=== PATIENT | female | born 1970 | race Two or more races ===

== ENCOUNTER 2019-01-04 09:08 | Emergency (ER) | payer BC, MEDICAID ==
--- NOTE | 2019-01-04 09:24 | ED Physician Documentation ---
PD HPI HEENT - Stated complaint Stated Complaint: SORE THROAT - Chief complaint Chief Complaint: Heent - History obtained from History obtained from: Patient - History of Present Illness Timing - onset: How many days ago (7) Timing - duration: Days (7) Timing - details: Gradual onset, Still present Pain level now: 9 Location: Left ear, Throat Improves: Nothing Worsens: Swalllowing Associated symptoms: No: Fever, Congestion, Rhinorrhea, Cough Recently seen: Not recently seen - Additional information Additional information: Is a 48-year-old woman who presents with complaints that her left tonsil started hurting about a week ago and she has a history of stones so she did not really think that much of it. Now the pain is progressed up into her left ear is an 8- 9 out of 10 and she was taking ibuprofen and Tylenol which were helping up until last night. She has not had a fever. No stuffy nose or cough. She has had no known strep exposure but her boss had a sore throat at work last week and she works at the [employer]. Review of Systems Constitutional: denies: Fever Ears: reports: Ear pain Nose: denies: Congestion Throat: reports: Sore throat Respiratory: denies: Cough PD PAST MEDICAL HISTORY - Present Medications Home Medications: Ambulatory Orders Medication Instructions Recorded Confirmed Azithromycin [Zithromax] 250 mg PO DAILY #6 tablet 01/04/19 Esomeprazole Magnesium [Nexium] 01/04/19 - Allergies Allergies/Adverse Reactions: Allergies Allergy/AdvReac Type Severity Reaction Status Date / Time aspirin Allergy Respiratory Verified 01/04/19 09:18 codeine Allergy Rash Verified 01/04/19 09:18 Penicillins Allergy Rash Verified 01/04/19 09:18 PD ED PE NORMAL - Vitals Vital signs reviewed: Yes - General General: Alert and oriented X 3, No acute distress, Well developed/nourished - HEENT HEENT: Atraumatic, PERRL, Ears normal, Moist mucous membranes, Other (Tonsils are enlarged bilaterally and erythematous and there is the deep ulcer with exudate on the left tonsil.) - Neck Neck: Other (Left anterior cervical and submandibular adenopathy.) - Respiratory Respiratory: No respiratory distress, Clear bilaterally Results - Vitals Vitals: Vital Signs - 24 hr 01/04/19 09:16 Temperature 36.7 C Heart Rate 82 Respiratory 18 Rate Blood Pressure 162/115 H O2 Saturation 100 Oxygen O2 Source Room air - Labs Labs: Laboratory Tests 01/04/19 09:10 Group A Strep Rapid Negative PD MEDICAL DECISION MAKING - ED course Complexity details: reviewed results, d/w patient ED course: Strep screen was positive but the patient does have an exudative pharyngitis. We will cover her with Z-Jadiel awaiting the results of the culture. She is allergic to penicillin. Departure - Departure Disposition: 01 Home, Self Care Clinical Impression: Tonsillitis Condition: Good Instructions: ED Tonsillitis Follow-Up: [facility] [Provider Group] Prescriptions: Azithromycin [Zithromax] 250 mg PO DAILY #6 tablet Comments: A culture was obtained on the throat swab. Given the appearance of the tonsil I am going to cover you with a Zithromax Z-Jadiel antibiotic pending the results of the culture. Salt water gargles may help with the soreness and to wash off the exudate. Continue with the Tylenol or ibuprofen for pain.
[2019-01-04 09:30] VITALS: BP 162/115
== END 2019-01-04 10:05 | disposition home or self-care (01) ==
LOC: ED 09:08
DX: J03.90 Acute tonsillitis, unspecified (principal); J35.8 Other chronic diseases of tonsils and adenoids
CPT/HCPCS: 87070; 87430; 99283; 99284